=== PATIENT | male | born 1980 | race Caucasian/White ===

== ENCOUNTER 2020-10-11 14:03 | Emergency (ER) | payer MEDICAID, OTHER ==
[~2020-10-11] VITALS: Ht 167.6 cm; Wt 90.9 kg
[~2020-10-11 14:03] MED LIST: IBUP-1985 PO; PRED10TA PO
[2020-10-11] MEDS ORDERED: normal saline 1000ML IV soln IV ONE (14:30)
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
[2020-10-11] MEDS ORDERED: ondansetron/PF 4mg/2ml inj IV ONE (15:25)
[2020-10-11] MEDS ORDERED: morphine 4 MG/ML inj SYRINge IV PRN (15:25)
[2020-10-11 15:27] LABS: BASOPHILS # (AUTO) 0.1 X10'3 (0-0.2); BASOPHILS % (AUTO) 0.7 % (0-1); EOSINOPHILS # (AUTO) 0.2 X10'3 (0-0.9); EOSINOPHILS % (AUTO) 1.8 % (0-6); HEMATOCRIT 45.7 % (42.0-52.0); HEMOGLOBIN 15.8 g/dl (14.0-17.9); LYMPHOCYTES # (AUTO) 2.2 X10'3 (1.1-4.8); LYMPHOCYTES % (AUTO) 20.3 % (21-51); MEAN CORPUSCULAR HEMOGLOBIN 31.2 PG (27.0-31.0); MEAN CORPUSCULAR HGB CONC 34.6 g/dL (33.0-36.5); MEAN CORPUSCULAR VOLUME 90.1 FL (78-98); MEAN PLATELET VOLUME 7.4 FL (7.4-10.4); MONOCYTES # (AUTO) 0.7 X10'3 (0-0.9); MONOCYTES % (AUTO) 6.9 % (2-12); NEUTROPHILS # (AUTO) 7.5 X10'3 (1.8-7.7); NEUTROPHILS % (AUTO) 70.3 % (42-75); PLATELET COUNT 248 X10'3 (140-440); RED BLOOD COUNT 5.06 X10'6 (4.70-6.10); RED CELL DISTRIBUTION WIDTH 12.7 % (11.5-14.5); WHITE BLOOD COUNT 10.7 X10'3 (4.5-11.0)
[2020-10-11 15:41] LABS: ALANINE AMINOTRANSFERASE 57 U/L (12-78); ALBUMIN 3.9 G/DL (3.4-5.0); ALBUMIN/GLOBULIN RATIO 1.1 (1.1-1.5); ALKALINE PHOSPHATASE 65 IU/L (46-116); ANION GAP 9 (8-16); ASPARTATE AMINO TRANSFERASE 33 U/L (10-37); BILIRUBIN,TOTAL 0.7 MG/DL (0.1-1.0); BLOOD UREA NITROGEN 10 MG/DL (7-18); BUN/CREATININE RATIO 11.1 (5.4-32.0); CALCIUM 8.7 MG/DL (8.5-10.1); CHLORIDE 104 MMOL/L (99-107); GLUCOSE 160 MG/DL (70-104); POTASSIUM 3.5 MMOL/L (3.5-5.1); SODIUM 139 MMOL/L (135-145); TOTAL CARBON DIOXIDE 25.7 MMOL/L (24-32); TOTAL PROTEIN 7.5 G/DL (6.4-8.2); eGFR > 90 ML/MIN
[2020-10-11 15:56] LABS: CREATINE KINASE 398 U/L (39-308)
[2020-10-11 16:13] VITALS: BP 172/108
[2020-10-11] MEDS ORDERED: NAPR-56 PO (16:13)
[2020-10-11] MEDS ORDERED: HYDR-3965 PO (16:13)
[2020-10-11] MEDS ORDERED: ONDA4TAB6 PO (16:15)
[2020-10-11] MEDS ORDERED: ketorolac trometh. 30mg/ml inj. IV ONE (16:15)
== END 2020-10-11 16:37 | disposition home or self-care (01) ==
LOC: ER 14:04
DX: S06.0X9A Concussion with loss of consciousness of unspecified duration, initial encounter (principal); S02.2XXA Fracture of nasal bones, initial encounter for closed fracture; Z79.899 Other long term (current) drug therapy; Y08.89XA Assault by other specified means, initial encounter; Y93.89 Activity, other specified; Y92.89 Other specified places as the place of occurrence of the external cause; Y99.8 Other external cause status
CPT/HCPCS: 36415; 70450; 70486; 80053; 82550; 85025; 93005; 96374; 96375; 99285; J1885; J2270; J2405; J7030

== ENCOUNTER 2022-01-10 13:24 | Emergency (ER) | payer MEDICAID ==
[~2022-01-10] VITALS: Ht 170.2 cm; Wt 86.4 kg
[~2022-01-10 13:24] MED LIST changes: +ONDA4TAB6 PO
[2022-01-10 14:02] VITALS: BP 157/117
[2022-01-10 14:40] LABS: BASOPHILS # (AUTO) 0.1 X10'3 (0-0.2); EOSINOPHILS # (AUTO) 0.2 X10'3 (0-0.9); EOSINOPHILS % (AUTO) 2.3 % (0-6); HEMATOCRIT 48.1 % (42.0-52.0); LYMPHOCYTES # (AUTO) 2.9 X10'3 (1.1-4.8); LYMPHOCYTES % (AUTO) 27.3 % (21-51); MEAN CORPUSCULAR HEMOGLOBIN 32.7 PG (27.0-31.0); MEAN CORPUSCULAR HGB CONC 35.3 g/dL (33.0-36.5); MEAN CORPUSCULAR VOLUME 92.7 FL (78-98); MEAN PLATELET VOLUME 7.2 FL (7.4-10.4); MONOCYTES # (AUTO) 0.8 X10'3 (0-0.9); MONOCYTES % (AUTO) 7.9 % (2-12); NEUTROPHILS # (AUTO) 6.4 X10'3 (1.8-7.7); NEUTROPHILS % (AUTO) 61.5 % (42-75); PLATELET COUNT 229 X10'3 (140-440); RED BLOOD COUNT 5.19 X10'6 (4.70-6.10); RED CELL DISTRIBUTION WIDTH 12.4 % (11.5-14.5); WHITE BLOOD COUNT 10.5 X10'3 (4.5-11.0)
[2022-01-10 14:50] LABS: APTT 28 SECONDS (22-32)
[2022-01-10 14:53] LABS: ALBUMIN 3.5 G/DL (3.4-5.0); ALBUMIN/GLOBULIN RATIO 0.9 (1.1-1.5); ALKALINE PHOSPHATASE 74 IU/L (46-116); ANION GAP 13 (8-16); BILIRUBIN,TOTAL 0.3 MG/DL (0.1-1.0); BLOOD UREA NITROGEN 15 MG/DL (7-18); BUN/CREATININE RATIO 16.3 (5.4-32.0); CALCIUM 8.7 MG/DL (8.5-10.1); CHLORIDE 100 MMOL/L (99-107); CREATININE 0.92 MG/DL (0.60-1.10); SODIUM 137 MMOL/L (135-145); TOTAL CARBON DIOXIDE 24.5 MMOL/L (24-32); TOTAL PROTEIN 7.4 G/DL (6.4-8.2); eGFR 90 ML/MIN
[2022-01-10 15:00] LABS: CLARITY,URINE CLEAR (Clear); COLOR,URINE YELLOW (Yellow); GLUCOSE, URINE NEGATIVE (Neg); KETONES,URINE TRACE mg/dl (Neg); LEUKOCYTE ESTERASE ,URINE NEGATIVE (Neg); NITRITES, URINE NEGATIVE (Neg); OCCULT BLOOD,URINE NEGATIVE (Neg); PROTEIN,URINE NEGATIVE (Neg); UROBILINOGEN,URINE 0.2 E.U/dL (0.2-1.0)
[2022-01-10 15:00] LABS: GLUCOSE 136 MG/DL (70-104); POTASSIUM 3.6 MMOL/L (3.5-5.1)
[2022-01-10 15:04] LABS: ALANINE AMINOTRANSFERASE 68 U/L (12-78)
[2022-01-10 15:07] LABS: UA COLLECTION TYPE CLN CATCH MIDSTREAM
[2022-01-10 15:31] LABS: ASPARTATE AMINO TRANSFERASE 44 U/L (10-37)
[2022-01-10 19:10] LABS: OCCULT BLOOD STOOL NEGATIVE (Neg)
== END 2022-01-10 15:54 | disposition home or self-care (01) ==
LOC: ER 13:25
DX: K62.5 Hemorrhage of anus and rectum (principal); I10 Essential (primary) hypertension; G89.29 Other chronic pain; Z72.89 Other problems related to lifestyle; Z79.899 Other long term (current) drug therapy
CPT/HCPCS: 36415; 71045; 80053; 81003; 82272; 85025; 85610; 85730; 86885; 86900; 86901; 93005; 99285

== ENCOUNTER 2022-08-26 08:25 | Emergency (ER) | payer MEDICAID ==
[~2022-08-26] VITALS: Ht 170.2 cm; Wt 73.8 kg
[2022-08-26 08:33] VITALS: BP 183/122
[2022-08-26] MEDS ORDERED: LIDOcaine 5% patch TP STA (09:42)
[2022-08-26] MEDS ORDERED: HYDROcodone/acetaminophen 10/325mg tab PO ONE (09:45)
[2022-08-26] MEDS ORDERED: ibuprofen tablet 400 MG TABLET PO ONE (09:45)
[2022-08-26] MEDS ORDERED: IBUP-1986 PO (09:51)
[2022-08-26] MEDS ORDERED: LIDO-15 TOP (09:51)
[2022-08-26] MEDS ORDERED: HYDR-3973 PO (09:51)
== END 2022-08-26 10:42 | disposition home or self-care (01) ==
LOC: ER 08:25
DX: S00.12XA Contusion of left eyelid and periocular area, initial encounter (principal); S00.11XA Contusion of right eyelid and periocular area, initial encounter; S00.91XA Abrasion of unspecified part of head, initial encounter; Y08.89XA Assault by other specified means, initial encounter; Y93.89 Activity, other specified; Y92.89 Other specified places as the place of occurrence of the external cause; Y99.8 Other external cause status
CPT/HCPCS: 70450; 99284

== ENCOUNTER 2022-08-28 09:54 | Emergency (ER) | payer MEDICAID ==
[~2022-08-28] VITALS: Ht 170.2 cm; Wt 81.8 kg
[~2022-08-28 09:54] MED LIST changes: +HYDR-3973 PO; +IBUP-1986 PO; +LIDO-15 TOP
[2022-08-28] MEDS ORDERED: normal saline 1000ml 1,000 ML IV ONE (10:30)
[2022-08-28] MEDS ORDERED: HYDROcodone/acetaminophen 5mg/325mg tablet PO ONE (10:35)
[2022-08-28 10:43] LABS: BASOPHILS # (AUTO) 0.1 X10'3 (0-0.2); BASOPHILS % (AUTO) 0.9 % (0-1); EOSINOPHILS # (AUTO) 0.1 X10'3 (0-0.9); EOSINOPHILS % (AUTO) 0.9 % (0-6); HEMATOCRIT 51.9 % (42.0-52.0); HEMOGLOBIN 17.9 g/dl (14.0-17.9); LYMPHOCYTES # (AUTO) 1.3 X10'3 (1.1-4.8); LYMPHOCYTES % (AUTO) 13.9 % (21-51); MEAN CORPUSCULAR HEMOGLOBIN 32.1 PG (27.0-31.0); MEAN CORPUSCULAR HGB CONC 34.5 g/dL (33.0-36.5); MEAN CORPUSCULAR VOLUME 93.1 FL (78-98); MEAN PLATELET VOLUME 6.8 FL (7.4-10.4); MONOCYTES # (AUTO) 0.6 X10'3 (0-0.9); MONOCYTES % (AUTO) 6.3 % (2-12); NEUTROPHILS # (AUTO) 7.5 X10'3 (1.8-7.7); PLATELET COUNT 237 X10'3 (140-440); RED BLOOD COUNT 5.57 X10'6 (4.70-6.10); RED CELL DISTRIBUTION WIDTH 12.9 % (11.5-14.5); WHITE BLOOD COUNT 9.6 X10'3 (4.5-11.0)
[2022-08-28] MEDS ORDERED: iohexol 350MG/ML 100ml bottle IV ONE (10:46)
[2022-08-28 10:58] LABS: ALANINE AMINOTRANSFERASE 67 U/L (12-78); ALKALINE PHOSPHATASE 82 IU/L (46-116); ANION GAP 10 (8-16); ASPARTATE AMINO TRANSFERASE 47 U/L (10-37); BILIRUBIN,TOTAL 0.7 MG/DL (0.1-1.0); BLOOD UREA NITROGEN 8 MG/DL (7-18); BUN/CREATININE RATIO 10.8 (10.0-20.0); CHLORIDE 100 MMOL/L (99-107); CREATININE 0.74 MG/DL (0.60-1.10); GLUCOSE 151 MG/DL (70-104); LIPASE 106 U/L (73-393); POTASSIUM 3.9 MMOL/L (3.5-5.1); SODIUM 134 MMOL/L (135-145); TOTAL CARBON DIOXIDE 24.2 MMOL/L (24-32); eGFR > 90 ML/MIN
[2022-08-28 11:57] LABS: CLARITY,URINE CLEAR (Clear); COLOR,URINE STRAW (Yellow); GLUCOSE, URINE 100 mg/dl (Neg); KETONES,URINE TRACE mg/dl (Neg); LEUKOCYTE ESTERASE ,URINE NEGATIVE (Neg); NITRITES, URINE NEGATIVE (Neg); OCCULT BLOOD,URINE TRACE-INTACT (Neg); PROTEIN,URINE NEGATIVE (Neg); UROBILINOGEN,URINE 0.2 E.U/dL (0.2-1.0)
[2022-08-28 11:58] LABS: UA COLLECTION TYPE CLN CATCH MIDSTREAM
[2022-08-28 12:07] LABS: SQUAMOUS EPITHELIAL CELL,UR FEW /LPF (FEW)
[2022-08-28 12:09] LABS: WBC,URINE 0-4 /HPF (0-4)
[2022-08-28 12:10] LABS: BACTERIA,URINE FEW /HPF (Neg)
[2022-08-28] MEDS ORDERED: ketorolac trometh. 30mg/ml inj. IV ONE (12:10)
[2022-08-28 12:24] VITALS: BP 172/91
== END 2022-08-28 12:25 | disposition home or self-care (01) ==
LOC: ER 09:55
DX: R07.81 Pleurodynia (principal); I10 Essential (primary) hypertension
CPT/HCPCS: 36415; 71260; 74177; 75571; 80053; 81001; 83690; 85025; 85610; 96361; 96374; 99285; J1885; J3490; J7030; Q9967

== ENCOUNTER 2023-08-21 08:50 | Emergency (ER) | payer MEDICAID, OTHER ==
[~2023-08-21] VITALS: Ht 167.6 cm; Wt 77.3 kg
[~2023-08-21 08:50] MED LIST changes: -HYDR-3973 PO
[2023-08-21 09:06] VITALS: BP 159/94
[2023-08-21] MEDS ORDERED: AZIT250T83 PO (10:35)
[2023-08-21] MEDS ORDERED: BENZ-38 PO (10:35)
[2023-08-21] MEDS ORDERED: ALBU8HFA INH (10:35)
[2023-08-21] MEDS ORDERED: PRED20TA PO (10:35)
[2023-08-21 10:49] VITALS: PULSE 67; RESP 18; TEMP 98; O2SAT 99
== END 2023-08-21 10:51 | disposition home or self-care (01) ==
LOC: ER 08:50
DX: J06.9 Acute upper respiratory infection, unspecified (principal); I10 Essential (primary) hypertension; Z79.1 Long term (current) use of non-steroidal anti-inflammatories (NSAID); Z79.899 Other long term (current) drug therapy
CPT/HCPCS: 71045; 99283